=== PATIENT | female | born 1985 | race Caucasian/White ===

== ENCOUNTER 2018-03-25 14:58 | Emergency (ER) | payer MEDICAID ==
[~2018-03-25] VITALS: Ht 175.3 cm; Wt 99.8 kg
[2018-03-25 15:05] VITALS: BP 147/90
[2018-03-25] MEDS ORDERED: NACL 0.9% 1,000 ML IV SCH (15:39)
[2018-03-25] MEDS ORDERED: ONDANSETRON 4 MG/2 ML VIAL IVP ONE (15:40)
[2018-03-25 16:46] LABS: BASOPHILS % (AUTO) 0.3 % (0.0-2.0); EOSINOPHILS % (AUTO) 0.3 % (0.0-4.0); HEMATOCRIT 43.6 % (36-48); HEMOGLOBIN 14.3 g/dL (12.0-16.0); LYMPHOCYTES # (AUTO) 1.5 K/uL (2.5-16.5); MEAN CORPUSCULAR HEMOGLOBIN 29 pg (27-31); MEAN CORPUSCULAR HGB CONC 33 g/dL (33-37); MEAN CORPUSCULAR VOLUME 89.6 fL (80-94); MONOCYTES # (AUTO) 0.3 K/uL (0.8-1.0); MONOCYTES % (AUTO) 4.4 % (1.7-9.3); NEUTROPHILS # (AUTO) 5.9 K/uL (1.8-7.7); PLATELET COUNT (AUTO) 236 K/uL (140-450); RED BLOOD CELL COUNT(AUTO) 4.87 MIL/uL (4.20-5.40); RED CELL DISTRIBUTION WIDTH 14.2 % (11.6-13.7); WHITE BLOOD COUNT (AUTO) 7.7 K/uL (4.8-10.8)
[2018-03-25 17:01] LABS: ANION GAP 16.9 (8-16); CARBON DIOXIDE 23.2 mmol/L (21-32); CHLORIDE 102 mmol/L (98-107); CREATININE 0.8 mg/dL (0.6-1.3); GFR ARICAN-AMERICAN 106 mL/min (>90); GLUCOSE 89 mg/dL (74-106); POTASSIUM 4.1 mmol/L (3.5-5.1); SODIUM SERUM 138 mmol/L (136-145); UREA NITROGEN, BLOOD 9 mg/dL (7-18)
[2018-03-25 17:11] LABS: ALBUMIN 4.4 g/dL (3.4-5.0); AMYLASE 58 U/L (25-115); ASPARTATE AMINOTRANSFERASE 19 U/L (15-37); LIPASE 119 U/L (73-393); TOTAL BILIRUBIN 0.5 mg/dL (0.0-1.0)
[2018-03-25 17:14] LABS: BARBITURATE, URINE NEG. ng/ml (NEG <=200); BENZODIAZEPINE, URINE NEG. ng/mL (NEG <=200); CANNABINOID, URINE NEG. ng/mL (NEG <=50); COCAINE, URINE NEG. ng/mL (NEG <=300); OPIATE, URINE NEG. ng/mL (NEG <=2000); PHENCYCLIDINE SCREEN,URINE NEG. ng/mL (NEG <=25)
[2018-03-25 17:23] LABS: ACETONE, SERUM SMALL (NEGATIVE)
[2018-03-25 17:25] LABS: APPEARANCE,URINE CLEAR (CLEAR); BILIRUBIN,URINE NEGATIVE (NEGATIVE); BLOOD, URINE NEGATIVE (NEGATIVE); COLOR,URINE YELLOW (YELLOW); LEUKOCYTE ESTERASE ,URINE NEGATIVE (NEGATIVE); NITRITE, URINE NEGATIVE (NEGATIVE); UGLUCOSE NEGATIVE (NEGATIVE)
[2018-03-25 17:59] VITALS: BP 124/88
== END 2018-03-25 17:59 | disposition home or self-care (01) ==
LOC: MED 14:58
DX: K29.20 Alcoholic gastritis without bleeding (principal); E86.0 Dehydration; R07.89 Other chest pain
CPT/HCPCS: 36415; 71045; 80053; 80305; 81003; 82009; 82150; 83690; 84484; 84703; 85025; 93005; 96361; 96374; 99284; G0482; J2405; J7030; Q0092

== ENCOUNTER 2019-05-09 11:02 | Emergency (ER) | payer MEDICAID ==
[~2019-05-09] VITALS: Ht 175.3 cm; Wt 101.8 kg
--- NOTE | 2019-05-09 11:19 | NUR ---
AMB TO BED 02
[2019-05-09 11:21] VITALS: BP 149/89
--- NOTE | 2019-05-09 11:27 | NUR ---
33YO F C/O MID LOWER ABDOMINAL PAIN X 2 WEEKS. DESCRIBES PAIN SHARP, 5/10 WHICH IS WORSE AT NIGHT WHEN SHE LAYS DOWN. PER PATIENT, HER HER UMBILICUS IS "POPPING OUT." +N/V/D, -URINARY PROBLEMS. VSS. ABDOMEN SOFT, NON-TENDER, WITH ACTIVE BOWEL SOUNDS ALL QUADRANTS. PATIENT POSITIONED IN BED COMFORTABLY. ERMD MADE AWARE OF PT STATUS. LMP: 05/01/2019 DENIES PMH NO MEDS NKA
--- NOTE | 2019-05-09 11:52 | NUR ---
PT RESTING IN BED, SIDE RAIL X1
[2019-05-09] MEDS ORDERED: KETOROLAC 30 MG/ML VIAL IVP ONE (12:20)
[2019-05-09] MEDS ORDERED: NACL 0.9% 1,000 ML IV ONE (12:25)
[2019-05-09 12:52] LABS: BASOPHILS % (AUTO) 0.6 % (0.0-2.0); EOSINOPHILS # (AUTO) 0.1 K/uL (0-0.4); EOSINOPHILS % (AUTO) 1.6 % (0.0-4.0); HEMATOCRIT 40.1 % (36-48); HEMOGLOBIN 12.9 g/dL (12.0-16.0); LYMPHOCYTES # (AUTO) 1.4 K/uL (2.5-16.5); LYMPHOCYTES % (AUTO) 27.9 % (20.5-51.1); MEAN CORPUSCULAR HEMOGLOBIN 28 pg (27-31); MEAN CORPUSCULAR HGB CONC 32 g/dL (33-37); MEAN CORPUSCULAR VOLUME 86.9 fL (80-94); MONOCYTES # (AUTO) 0.3 K/uL (0.8-1.0); MONOCYTES % (AUTO) 6.4 % (1.7-9.3); NEUTROPHILS # (AUTO) 3.1 K/uL (1.8-7.7); NEUTROPHILS % (AUTO) 63.5 % (42.2-75.2); PLATELET COUNT (AUTO) 232 K/uL (140-450); RED BLOOD CELL COUNT(AUTO) 4.62 MIL/uL (4.20-5.40); RED CELL DISTRIBUTION WIDTH 14.7 % (11.6-13.7); WHITE BLOOD COUNT (AUTO) 4.9 K/uL (4.8-10.8)
[2019-05-09 13:06] LABS: ANION GAP 12.2 (8-16); CREATININE 0.8 mg/dL (0.6-1.3); POTASSIUM 4.2 mmol/L (3.5-5.1)
[2019-05-09 13:19] LABS: ALBUMIN 3.8 g/dL (3.4-5.0); TOTAL BILIRUBIN 0.4 mg/dL (0.0-1.0)
[2019-05-09 15:21] VITALS: BP 149/89
--- NOTE | 2019-05-12 11:22 | NUR ---
Late entry. Confirmed with RN that 0.9 NS IV completed at 1500
== END 2019-05-09 15:21 | disposition home or self-care (01) ==
LOC: MED 11:02
DX: R10.9 Unspecified abdominal pain (principal); M54.6 Pain in thoracic spine; R11.10 Vomiting, unspecified; R19.7 Diarrhea, unspecified; Z88.8 Allergy status to other drugs, medicaments and biological substances
CPT/HCPCS: 36415; 74177; 80053; 81025; 85025; 96361; 96374; 99285; J1885; Q9967; J7030

== ENCOUNTER 2020-05-23 14:17 | Emergency (ER) | payer MEDICAID ==
[~2020-05-23] VITALS: Ht 172.7 cm; Wt 105.7 kg
[2020-05-23 14:22] VITALS: BP 151/104
[2020-05-23] MEDS ORDERED: HYDROcodone/APAP 5/325 MG 1 TAB TAB PO ONE (14:40)
[2020-05-23] MEDS ORDERED: KETOROLAC 60 MG/2 ML VIAL IM ONE (16:00)
[2020-05-23 16:27] LABS: APPEARANCE,URINE CLEAR (CLEAR); BILIRUBIN,URINE NEGATIVE (NEGATIVE); BLOOD, URINE TRACE-I (NEGATIVE); COLOR,URINE YELLOW (YELLOW); LEUKOCYTE ESTERASE ,URINE 1+ (NEGATIVE); NITRITE, URINE NEGATIVE (NEGATIVE); PH,URINE 5.5 (5.0-9.0); UGLUCOSE NEGATIVE (NEGATIVE)
[2020-05-23 16:33] LABS: RBC,URINE 0-5 /HPF (0-5)
[2020-05-23 16:54] VITALS: BP 151/104
== END 2020-05-23 16:54 | disposition home or self-care (01) ==
LOC: MED 14:17
DX: N39.0 Urinary tract infection, site not specified (principal); Z88.8 Allergy status to other drugs, medicaments and biological substances
CPT/HCPCS: 81001; 81025; 87086; 96372; 99283; J1885; 81002

== ENCOUNTER 2021-09-02 17:22 | Emergency (ER) | payer MEDICAID ==
[~2021-09-02] VITALS: Ht 172.7 cm; Wt 110.7 kg
[2021-09-02 17:25] VITALS: BP 121/101
[2021-09-02] MEDS ORDERED: ONDANSETRON 4 MG/2 ML VIAL IVP ONE (17:55)
[2021-09-02] MEDS ORDERED: FAMOTIDINE 20 MG/2 ML VIAL IVP ONE (17:55)
[2021-09-02] MEDS ORDERED: NACL 0.9% 1,000 ML IV SCH (17:55)
--- NOTE | 2021-09-02 18:00 | NUR ---
PT IN ROOM 6 WITH SON
[2021-09-02] MEDS ORDERED: ONDA-188 PO (19:10)
--- NOTE | 2021-09-02 19:22 | NUR ---
Patient discharged with v/s stable. Written and verbal after care instructions given and explained. Patient verbalized understanding. Ambulatory with steady gait. All questions addressed prior to discharge. Advised to follow up with PMD.
== END 2021-09-02 19:22 | disposition home or self-care (01) ==
LOC: MED 17:22
DX: R11.10 Vomiting, unspecified (principal); R19.7 Diarrhea, unspecified; R10.13 Epigastric pain; Z79.899 Other long term (current) drug therapy
CPT/HCPCS: 81002; 81025; 96361; 96374; 96375; 99284; J2405; J3490; J7030

== ENCOUNTER 2022-03-30 18:11 | Emergency (ER) | payer MEDICAID ==
[~2022-03-30] VITALS: Ht 172.7 cm; Wt 104.3 kg
[~2022-03-30 18:11] MED LIST: ONDA-188 PO
[2022-03-30 18:30] VITALS: BP 126/96
--- NOTE | 2022-03-30 18:32 | NUR ---
PT AMBULATED TO LOBBY
--- NOTE | 2022-03-30 20:51 | NUR ---
PT CALLED IN LOBBY AND OUTSIDE WITH NO ANSWER.
--- NOTE | 2022-03-30 21:04 | NUR ---
PT CALLED OUTSIDE AND IN LOBBY WITH NO ANSWER.
== END 2022-03-30 21:04 | disposition left against medical advice (07) ==
LOC: MED 18:11
DX: M54.50 Low back pain, unspecified (principal); R42 Dizziness and giddiness; Z53.21 Procedure and treatment not carried out due to patient leaving prior to being seen by health care provider